=== PATIENT | male | born 1975 | race Caucasian/White ===

== ENCOUNTER 2017-09-04 11:36 | Emergency (ER) | payer SELFPAY ==
[~2017-09-04] VITALS: Ht 170.2 cm; Wt 65.9 kg
[~2017-09-04 11:36] MED LIST: LORT7.5T3 PO
[2017-09-04 11:44] VITALS: BP 139/79; PULSE 84; RESP 16; TEMP 97.8; O2SAT 98
[2017-09-04] MEDS ORDERED: LIDOCAINE HCL 1% 50 ML VIAL INFIL ONE (13:00)
[2017-09-04] MEDS ORDERED: CEPH-460 PO (14:05)
--- NOTE | 2017-09-04 14:06 | PD ---
HPI Chief Complaint: Laceration/Skin Injury Time Seen by Provider: 12:35 Travel History International Travel<30 days: No Contact w/Intl Traveler<30days: No Traveled to known affect area: No History of Present Illness HPI 42-year-old male here for evaluation of left thumb and index finger laceration caused by hedge trimming tool prior to arrival. Patient is right-hand dominant. Patient has multiple abrasions/lacerations to the first and second digit volar aspect. He reports normal sensation and range of motion of both digits. He reports mild pain at the site of the lacerations worse with movement and relieved with rest. He sustained no other injuries. [facility] Past Medical History Asthma: Yes (INHALER) Diminished Hearing: No Neurologic: Yes Psychiatric: No Migraines: Yes (SEVERE "THEY PUT ME TO SLEEP", CT LAST WEK IN [place] AT [facility]IC) Past Surgical History Neurologic Surgery: Yes (1998 CLOT REMOVED FROM BRAIN ) Oral Surgery: Yes (TEETH REMOVED THIS YEAR, INFECTED [place] WITH ANTIBIOTICS) Tonsillectomy: No (I NEED THEM OUT) Social History Alcohol Use: Yes (coule of beeers a month) Tobacco Use: Yes (1 ppd) Substance Use: No Allergies-Medications (Allergen,Severity, Reaction): Coded Allergies: No Known Allergies (Verified Allergy, Severe, 09/16/17) Reported Meds & Prescriptions Reported Meds & Active Scripts Active Reported Hydrocodone-Acetaminophen 5-325 mg Tab 1 Tab PO Q4H PRN Review of Systems Except as stated in HPI: all other systems reviewed are Neg Physical Exam Narrative GENERAL: Well-nourished, well-developed patient. SKIN: Focused skin assessment warm/dry. HEAD: Normocephalic. EYES: No scleral icterus. No injection or drainage. NECK: Supple, trachea midline. No JVD or lymphadenopathy. CARDIOVASCULAR: Regular rate and rhythm without murmurs, gallops, or rubs. RESPIRATORY: Breath sounds equal bilaterally. No accessory muscle use. GASTROINTESTINAL: Abdomen soft, non-tender, nondistended. MUSCULOSKELETAL: No cyanosis, or edema. Left hand: multiple abrasions/ lacerations to the first and second digit volar aspect. Patient has 2 wounds approximately 2 cm in length. No tendon/vascular injury visualized. Wounds are moderately contaminated. Patient has full range of motion and normal sensation. Brisk cap Refill. Data Data Last Documented VS Orders Orders Lidocaine 1% Inj (50 Ml) (Xylocaine 1% I (09/04/17 13:00) Tetanus/Diphtheria Tox Adult (Tetanus/Di (09/04/17 14:15) MDM Medical Decision Making Medical Screen Exam Complete: Yes Emergency Medical Condition: Yes Differential Diagnosis Hand laceration, abrasion, tendon laceration Narrative Course 42-year-old male here for evaluation of left thumb and index finger laceration caused by hedge trimming tool prior to arrival. Patient has multiple abrasions/ lacerations to the first and second digit volar aspect. The wounds are moderately contaminated with soil and grease from the blade of the sole trimmer. The wounds were extensively cleaned and irrigated. No foreign body visualized. No tendon injury visualized. No vascular injury. Patient has full range of motion and normal sensation. 2 lacerations were loosely approximated. Patient will be put on oral antibiotics. Return in 2 days for wound recheck. Finger splints for immobilization. Procedures Procedure Narrative LACERATION LOCATION: Left second digit, left thumb LENGTH: Approximately 1.5 cm each NUMBER OF STITCHES/CORI: 3 REPAIR: The area of the laceration was prepped with Betadine and sterilely draped. Digital block using 1% lidocaine. The wound was copiously irrigated and explored without evidence of foreign body, tendon injury or neurovascular injury. The wound was closed using 4-0 Ethilon. This was a single layer repair. A sterile dressing was applied. The patient was advised to keep the dressing clean and dry. Patient tolerated the procedure well. Diagnosis Primary Impression: Hand laceration Qualified Codes: S61.412A - Laceration without foreign body of left hand, initial encounter Referrals: Primary Care Physician Additional Instructions: Take the antibiotics as prescribed. Cleansed the area daily with soap and water then apply clean dry dressing. With finger splints to immobilize the area. Take [id number] Tylenol or Motrin as needed for pain Return to the emergency department in 2 days for wound recheck. Sutures need to be removed in 7-10 days Disposition: 01 DISCHARGE HOME Condition: Stable Fiona Ovalle Sep 04, 2017 14:06
[2017-09-04] MEDS ORDERED: TETANUS/DIPHTHERIA TOXOID ADULT 0.5 ML VIAL IM ONE (14:15)
== END 2017-09-04 14:41 | disposition home or self-care (01) ==
LOC: PHEFT 11:36
DX: S61.412A Laceration without foreign body of left hand, initial encounter (principal); W27.8XXA Contact with other nonpowered hand tool, initial encounter; Z23 Encounter for immunization
CPT/HCPCS: 12042; 90471; 90714

== ENCOUNTER 2017-09-08 14:47 | Emergency (ER) | payer SELFPAY ==
[~2017-09-08] VITALS: Ht 170.2 cm; Wt 66.2 kg
[2017-09-08 14:47] VITALS: BP 139/74; PULSE 92; RESP 16; TEMP 98.1; O2SAT 99
[~2017-09-08 14:47] MED LIST changes: +CEPH-460 PO; -LORT7.5T3 PO
[2017-09-08] MEDS ORDERED: HYDR-3533 PO (15:05)
--- NOTE | 2017-09-08 15:08 | PD ---
HPI Chief Complaint: Wound/Suture/Staple Re-Check Time Seen by Provider: 14:54 Travel History International Travel<30 days: No Contact w/Intl Traveler<30days: No Traveled to known affect area: No History of Present Illness HPI 42-year-old male presents to emergency department for wound recheck of lacerations that he obtain to his left thumb and second finger 4 days ago. He is also requesting something for pain. He was seen here on September 04 for laceration repair. He's been taking antibiotics as prescribed. He has been changing the bandage daily and applying a topical antibiotic ointment. Denies fever, vomiting. Denies paresthesias, loss of sensation to the affected fingers. Denies drainage from the laceration sites. Has been taking ibuprofen with no relief of pain. Rates pain 10/10. Describes it as a throbbing sensation. Pain is constant and unrelieved. Worse with movement and palpation. No known relieving factors. No known allergies. Has no medical complaints. No other modifying factors or associated signs and symptoms. PFSH Past Medical History Asthma: Yes (INHALER) Diminished Hearing: No Neurologic: Yes Psychiatric: No Migraines: Yes (SEVERE "THEY PUT ME TO SLEEP", CT LAST WEK IN [place] AT [facility]) Past Surgical History Neurologic Surgery: Yes (1998 CLOT REMOVED FROM BRAIN ) Oral Surgery: Yes (TEETH REMOVED THIS YEAR, INFECTED [place] WITH ANTIBIOTICS) Social History Alcohol Use: Yes (coule of beeers a month) Tobacco Use: Yes (1 ppd) Substance Use: No Allergies-Medications (Allergen,Severity, Reaction): Coded Allergies: No Known Allergies (Verified Allergy, Severe, 09/08/17) Reported Meds & Prescriptions Reported Meds & Active Scripts Active Lortab (Hydrocodone-Acetaminophen) 5-325 Mg Tab 1 Tab PO Q4H PRN Keflex (Cephalexin) 500 Mg Capsule 500 Mg PO Q6H 7 Days Review of Systems Except as stated in HPI: all other systems reviewed are Neg Physical Exam Narrative GENERAL: Well-nourished, well-developed male patient, in no acute distress SKIN: Warm and dry. Left thumb and first finger with lacerations are well approximated and sutures intact; fingers are minimally edematous without erythema or drainage; No signs of infection. Left upper extremity supple and non-tense with 2+ radial pulses sensory intact without erythema or edema. HEAD: Atraumatic. Normocephalic. EYES: Pupils equal and round. No scleral icterus. No injection or drainage. ENT: Mucosa pink and moist. Airway patent. NECK: Trachea midline. CARDIOVASCULAR: Regular rate. RESPIRATORY: No accessory muscle use. GASTROINTESTINAL: Flat. MUSCULOSKELETAL: No obvious deformities. No clubbing. No cyanosis. No edema. NEUROLOGICAL: Awake and alert. Oriented 3. No obvious cranial nerve deficits. Motor grossly within normal limits. Normal speech. PSYCHIATRIC: Appropriate mood and affect; insight and judgment normal. Data Data Last Documented VS Vital Signs Date Time Temp Pulse Resp B/P (MAP) Pulse Ox O2 Delivery O2 Flow Rate FiO2 09/08/17 14:47 98.1 92 16 139/74 (95) 99 Orders Orders Ed Discharge Order (09/08/17 15:08) Wound Care (09/08/17 15:08) MDM Medical Decision Making Medical Screen Exam Complete: Yes Emergency Medical Condition: Yes Medical Record Reviewed: Yes Differential Diagnosis Wound recheck, medical clearance, pain management Narrative Course 42-year-old male presents for wound recheck 2 lacerations to his left thumb and second finger. He was seen here on September 04 for laceration repair. The wounds are well approximated with sutures intact without signs of infection. Patient is taking Keflex as prescribed. Instructed patient to continue antibiotic as prescribed. Patient's lacerations to his finger pretty extensive and he is asking for something pain. I will prescribe a short course of Lortab for home. Wound care provided and dressings applied. Instructed patient to return to the emergency department or follow-up with primary care provider in 5- 7 days for suture removal. Instructed patient to follow up with primary care provider. Patient verbalizes understanding and agreement with treatment plan. Patient is medically cleared and stable for discharge. Discussed reasons to return to the emergency department. Patient agrees with treatment plan. The patients vital signs are stable and the patient is stable for outpatient follow- up and treatment. Patient discharged home, stable and in no acute distress. Diagnosis Primary Impression: Encounter for wound re-check Referrals: Primary Care Physician Patient Instructions: Care For Your Stitches (ED), Finger Laceration (ED), General Instructions Additional Instructions: Keep area clean and dry Limit wrapping the fingers with so much quaze and bandage to allow the wounds to be open to air Cover the wounds when at work or in public Continue antibiotics as prescribed Ibuprofen or Tylenol as directed and as needed for pain and inflammation Return to the emergency department or follow-up with primary care provider in 7 days for suture removal Follow-up with primary care provider Return to the emergency department immediately if worsening of symptoms Med/Other Pt SpecificInfo: Prescription(s) given Scripts Hydrocodone-Acetaminophen (Lortab) 5-325 Mg Tab 1 TAB PO Q4H Y for PAIN, #8 TAB 0 Refills Prov: Floresita Abarca 09/08/17 Disposition: 01 DISCHARGE HOME Condition: Stable Floresita Abarca Sep 08, 2017 15:08
== END 2017-09-08 15:14 | disposition home or self-care (01) ==
LOC: PHEFT 14:47
DX: S61.012D Laceration without foreign body of left thumb without damage to nail, subsequent encounter (principal); X58.XXXD Exposure to other specified factors, subsequent encounter
CPT/HCPCS: 99281

== ENCOUNTER 2017-09-16 17:40 | Emergency (ER) | payer SELFPAY ==
[~2017-09-16] VITALS: Ht 170.2 cm; Wt 65.0 kg
[~2017-09-16 17:40] MED LIST changes: +HYDR-3533 PO
[2017-09-16 17:51] VITALS: BP 132/71; PULSE 78; RESP 16; TEMP 98.2; O2SAT 99
[2017-09-16] MEDS ORDERED: HYDR-3516 PO (17:56)
--- NOTE | 2017-09-16 18:53 | PD ---
HPI . Suture removal Chief Complaint: Wound/Suture/Staple Re-Check Time Seen by Provider: 18:23 Travel History International Travel<30 days: No Contact w/Intl Traveler<30days: No Traveled to known affect area: No History of Present Illness HPI 42-year-old male patient presents emergency department for suture removal. Patient sustained lacerations to his left thumb and second digit and had sutures placed on September 04. Patient was placed on prophylactic antibiotics at that time. He has since finished the course. Patient states he has been doing daily dressing changes and applying topical antibiotic ointment. Patient denies any fever, and chills, nausea, vomiting, paresthesias to the hand. PFSH Past Medical History Asthma: Yes Diminished Hearing: Yes Neurologic: Yes Psychiatric: No Immunizations Current: Yes Migraines: Yes (SEVERE "THEY PUT ME TO SLEEP", CT LAST WEK IN [place] AT [facility]) Tetanus Vaccination: < 5 Years Influenza Vaccination: No Past Surgical History Neurologic Surgery: Yes (1998 CLOT REMOVED FROM BRAIN ) Oral Surgery: Yes (TEETH REMOVED THIS YEAR, INFECTED [place] WITH ANTIBIOTICS) Social History Alcohol Use: Yes (coule of beeers a month) Tobacco Use: Yes (1 ppd) Substance Use: No Allergies-Medications (Allergen,Severity, Reaction): Coded Allergies: No Known Allergies (Verified Allergy, Severe, 09/16/17) Reported Meds & Prescriptions Reported Meds & Active Scripts Active Reported Hydrocodone-Acetaminophen 5-325 mg Tab 1 Tab PO Q4H PRN Review of Systems Except as stated in HPI: all other systems reviewed are Neg Physical Exam Narrative GENERAL: Well-nourished, well-developed 42-year-old male patient in no acute distress. Nontoxic appearing. SKIN: Left thumb and first finger have lacerations that are well approximated with 6 intact sutures. Finger are minimally edematous without any erythema or drainage. No signs of localized infection. HEAD: Normocephalic. Atraumatic. EYES: No scleral icterus. No injection or drainage. NECK: Supple, trachea midline. No JVD or lymphadenopathy. CARDIOVASCULAR: Regular rate and rhythm without murmurs, gallops, or rubs. Radial Pulses +2 bilaterally. RESPIRATORY: Breath sounds equal bilaterally. No accessory muscle use. GASTROINTESTINAL: Abdomen soft, non-tender, nondistended. MUSCULOSKELETAL: Full range of motion in left hand. No cyanosis, or edema. Data Data Last Documented VS Vital Signs Date Time Temp Pulse Resp B/P (MAP) Pulse Ox O2 Delivery O2 Flow Rate FiO2 09/16/17 17:51 98.2 78 16 132/71 (91) 99 Orders Orders Ed Discharge Order (09/16/17 18:58) MDM Medical Decision Making Medical Screen Exam Complete: Yes Emergency Medical Condition: Yes Differential Diagnosis Differential diagnoses include but are not limited to laceration, suture removal , cellulitis Narrative Course 42-year-old male patient presents emergency Department have his sutures removed. Suture placed on September 04. Lacerations are well approximated with a small area that is still healing but superficial in nature at this time. Patient has some deep scar tissue noted throughout lacerations. There is no signs of localized infection. Patient states sutures are removed. Patient tolerated procedure well. Patient instructed to keep the hand clean and dry and continue to apply the anabolic ointment to the small area that is still healing. Patient discharged home with instructions to return the emergency Department with any worsening condition but otherwise follow up with primary care. Diagnosis Primary Impression: Encounter for removal of sutures Referrals: Primary Care Physician Patient Instructions: General Instructions Additional Instructions: Keep area clean and dry Cover the wounds when at work or in public Ibuprofen or Tylenol as directed and as needed for pain and inflammation Follow-up with primary care provider Return to the emergency department immediately if worsening of symptoms Disposition: 01 DISCHARGE HOME Condition: Stable Paris Blevins Sep 16, 2017 18:53
== END 2017-09-16 19:16 | disposition home or self-care (01) ==
LOC: PHEFT 17:40
DX: S61.012D Laceration without foreign body of left thumb without damage to nail, subsequent encounter (principal); X58.XXXD Exposure to other specified factors, subsequent encounter; Z48.02 Encounter for removal of sutures
CPT/HCPCS: 99281